=== PATIENT | male | born 1985 | race Caucasian/White ===

== ENCOUNTER → 2023-10-21 | Outpatient (CLI) | payer OTHER, SELFPAY ==
[2023-10-21 12:17] LABS: Erythrocyte Sedimentation Rate 1 mm/hr (0-20)
[2023-10-21 12:40] LABS: AST(SGOT) 26 U/L (15-37); Alanine Aminotransfer ALT/SGPT 58 U/L (16-61); Albumin, Serum 3.9 g/dL (3.2-5.0); Alkaline Phosphatase 85 U/L (45-117); Anion Gap 3 (5-15); BUN 17 mg/dL (7-18); CRP < 2.90 mg/L (0.0-3.0); Calcium,Total 9.1 mg/dL (8.5-10.1); Chloride 107 mmol/L (98-107); Cholesterol 173 mg/dL (200); Creatinine, Serum 0.85 mg/dL (0.70-1.30); EST Glomerular Filtration Rate 106 mL/min (>60); Est Glom Filt Rate - Afr Amer 128 mL/min (>60); Globulin 3.8 g/dL (2.2-4.2); Glucose 104 mg/dL (74-106); High Density Lipoprotein 48 mg/dL; Potassium 4.3 mmol/L (3.5-5.1); Protein, Total 7.7 g/dL (6.4-8.2); Rheumatoid Factor < 10.0 IU/mL (<15); Sodium Level 138 mmol/L (136-145); Triglycerides 97 mg/dL; Very Low Density Lipoprotein 19 mg/dL (5-40)
[2023-10-24 12:08] LABS: ANTINUCLEAR ANTIBODIES DIRECT Negative (Negative)
== END | disposition home or self-care (01) ==
PROVIDERS: PCP Family Medicine; Referring Provider Family Medicine; Visit Provider Family Medicine
DX: Z13.6 Encounter for screening for cardiovascular disorders (principal); Z13.1 Encounter for screening for diabetes mellitus; M25.50 Pain in unspecified joint
CPT/HCPCS: 36415; 80053; 80061; 85652; 86038; 86140; 86431

== ENCOUNTER → 2024-01-25 | Outpatient (CLI) | payer OTHER, SELFPAY ==
[2024-01-25 17:08] LABS: Free T3 3.2 pg/mL (2.18-3.98); T4 Free Direct 1.01 ng/dL (0.76-1.46); Thyroid Stim Hormone (TSH) 1.43 uIU/mL (0.358-3.74)
[2024-01-27 16:09] LABS: Anti-Thyroglobulin AB < 1.0 IU/mL (0.0-0.9)
== END | disposition home or self-care (01) ==
LOC: LAB 15:43
PROVIDERS: PCP Family Medicine; Referring Provider Family Medicine; Visit Provider Family Medicine
DX: K52.9 Noninfective gastroenteritis and colitis, unspecified (principal)
CPT/HCPCS: 36415; 84432; 84439; 84443; 84481; 86800

== ENCOUNTER 2024-03-09 06:18 | Day surgery (SDC) | payer OTHER, SELFPAY ==
[2024-03-09 06:36] VITALS: BP 124/105; PULSE 82; RESP 16; TEMP 36.4; O2SAT 95; BMI 34.2
[2024-03-09] MEDS: Lactated Ringers 1,000 ML 15 ML IV (06:42)
--- NOTE | 2024-03-09 07:30 | EGD_PTH ---
PATIENT: RICHARD THOMPSON LOC: EN U#:[id number] AGE/SX: 38/M ROOM: RE03/09/[address]: Dr. Lucien Vora MD : 1985 BED: DIS: 03/09/2024 SPEC #: [id number] RECD: 03/09/24 10:50 STATUS: MINAL MILDRED #: [id number] PATRICE: 03/09/24 07:[address]: Lucien Vora DEPT: SURGICAL PATHOLOGY RECD BY: Yuly Uriarte ENTERED: 03/09/24 13:40 SP TYPE: EGD BIOPSY OT DR: Jada Griffiths PA-C Tissues: A - Gastric mucous membrane B - COLON BIOPSY Procedures: Surgery Specimen Level IV HEADER OPERATION: Colonoscopy with biopsies, EGD PRE-OP DIAGNOSIS: Abdominal pain, diarrhea TISSUE SUBMITTED: A- Antrum biopsy, B- Random colon biopsy MICROSCOPIC DIAGNOSIS A. Antrum, biopsy: Mild gastritis. See microscopic description and comment. B. Colon, random biopsy: Fragments of colonic mucosa, no pathologic diagnosis. / 03/12/24 COMMENT A. Immunohistochemistry ([id number]) supports the above diagnosis. MICROSCOPIC DESCRIPTION Slides are reviewed. The specimen shows fragments of gastric mucosa with chronic inflammatory cell infiltrates in the lamina propria consisting of lymphocytes and plasma cells, consistent with mild chronic gastritis. GROSS DESCRIPTION A. Received in fixative is one container labeled with the patient's name and designated Gastric antrum biopsy. The specimen consists of two irregular fragments of light gore soft tissue that in aggregate measure 0.6 x 0.2 x 0.1 cm. The specimen is totally submitted in one cassette. B. Received in fixative is one container labeled with the patient's name and designated Random colon biopsy. The specimen consists of multiple irregular fragments of light gore soft tissue that in aggregate measure 2.0 x 0.5 x 0.1 cm. The specimen is totally submitted in one cassette. / 03/09/24 TC:3 CPT:28871g2
--- NOTE | 2024-03-09 07:30 | IMM_PTH ---
PATIENT: RICHARD THOMPSON LOC: EN U#:[id number] AGE/SX: 38/M ROOM: RE03/09/[address]: Dr. Lucien Vora MD : 1985 BED: DIS: 03/09/2024 SPEC #: [id number] RECD: 03/09/24 13:13 STATUS: MINAL REQ #: [id number] PATRICE: 03/09/24 07:[address]: Lucien Vora DEPT: IMMUNOHISTOCHEMISTRY RECD BY: Justo Suazo ENTERED: 03/09/24 13:14 SP TYPE: IMMUNO OTHR DR: Jada Griffiths PA-C Tissues: A - Stomach, NOS Procedures: H Pylori (initial) PHYSICIAN & INSTITUTION [place] [id number] SPECIMEN INFORMATION: Tissue Source: Antrum biopsy Clinical Info: Abdominal pain, diarrhea Specimen Number: [id number] CPT code: 37241 METHODOLOGY: Deparaffinized sections of prefer/formalin-fixed tissue or PAP/DQ stained slides are incubated with monoclonal/polyclonal antibodies/oligonucleotide probes. Localization is made via biotin free immunoperoxidase method. Appropriate controls are performed and reacted as expected. Results on target cell population are indicated in the following table: RESULTS: ANTIBODY / CLONE RESULT Block A H Pylori (polyclonal) negative These tests were developed and their performance characteristics determined by [facility]. They may not have been cleared or approved by the U.S. Food and Drug Administration. The FDA has determined that such clearance or approval is not necessary. The above immunohistochemical/dualISH markers are ordered and reviewed by the Pathologist. INTERPRETATION: A. Antrum, biopsy: Negative for Helicobacter pylori organisms. KAY/ 03/12/24
--- NOTE | 2024-03-09 07:47 | HP.PCM_ITS ---
History and Physical Date of Admission: 03/09/24 Intake Vital Signs 02/15/2408:07 Height 6 ft 2 in Weight: 280 lb BMI 35.9 BP 121/80 H Blood Pressure Location Rt brachial Position Sitting Respiration 18 Pulse 67 Pulse Source Monitor Temp 97.3 F L Temp Source Temporal Pulse Oximetry (%) 93 Oxygen Delivery Method room air Intake Visit Reasons: Colonoscopy and EGD Chief Complaint: colonoscopy egd Package Drier Required: No Accompanied by: Is patient in pain?: No Allergies pollen extracts Allergy (Mild, Verified 02/15/24 08:09) UNKNOWN Medications budesonide 32 mcg/actuation nasal spray 1 - 2 spray intranasal QDAY 02/15/24 [History Confirmed 02/15/24] fluoxetine 20 mg capsule 20 mg PO QDAY 02/15/24 [History Confirmed 02/15/24] omeprazole 40 mg capsule,delayed release 40 mg PO QDAY 02/15/24 [History Confirmed 02/15/24] PFSH Surgical History (Updated 02/15/24 @ 08:06 by Jada Hernandez LPN) H/O shoulder surgery H/O wisdom tooth extraction Social History (Updated 02/15/24 @ 08:07 by Jada Hernandez LPN) Smokeless tobacco user: chewing tobacco alcohol intake: current alcohol intake frequency: a few times a month Alcohol type: beer substance use type: marijuana HPI HPI HPI: The patient is a 38-year-old male here with epigastric discomfort as well as diarrhea. He is concerned he has IBS. He says he has been having diarrhea as well as nausea every time he eats. He reports his discomfort is in the epigastric region and it starts pursing in the morning. Sometimes eating helps. He does not describe any radiation of the pain. He has never had a colonoscopy in the past and denies any family history of colon cancer. No blood in the stool. ROS HEENT HEENT: No difficulty swallowing, eye injury, eye surgery, swollen glands or hoarseness Skin Skin: No rash or changing moles Musc Musculoskeletal: Yes back problems; No arthritis, rheumatoid arthritis, gout or joint pain Cardio Cardiovascular: No murmur, pacemaker, heart disease, atrial fibrillation, high blood pressure, heart attack, heart stent, palpitations, shortness of breat with exertion or chest pain Psych Psychiatric: Yes depression and anxiety; No hearing voices Resp Respiratory: No shortness of breath, No sleep apnea, No cough, No COPD, No asthma, No emphysema and No wheezing Gastro Gastrointestinal: No abdominal pain, Yes nausea or vomiting, Yes diarrhea, No constipation, No blood in stool, Yes acid reflux, Yes hemorrhoids, No ulcers, No gallbladder problem and No black,tarry stools Chace Hematologic: No blood thinners, No blood disorders, No bleeding, No anemia and No blood clots Neuro Neurologic: Yes numbness and Yes tingling Exam Const General: cooperative Orientation: alert and oriented x3 HENMT Head: normal to inspection Neck Neck: normal visual inspection and full ROM Chest Chest palpation & inspection: normal inspection of the chest Resp Effort & Inspection: normal respiratory effort Auscultation: clear to auscultation bilaterally Cardio Rate: regular rate Rhythm: regular rhythm GI Inspection: non-distended Palpation: soft and nontender Skin General: no rashes or lesions noted Neuro General: patient alert and patient oriented x3 Extrem General: full ROM Psych Appearance: grossly normal Mental Status: mental status grossly normal Assessment and Plan Assessment and Plan (1) Abdominal pain: Status: Acute Qualifiers: Abdominal location: epigastric Qualified Code(s): R10.13 - Epigastric pain (2) Diarrhea: Status: Acute Qualifiers: Diarrhea type: unspecified type Qualified Code(s): R19.7 - Diarrhea, unspecified Orders: Orders Colonoscopy Today EGD Today Plan The patient is having chronic diarrhea and I discussed doing a colonoscopy to perform random biopsies to evaluate for microscopic colitis. I also discussed performing EGD for his epigastric pain. He just started omeprazole 2 weeks ago but does not report much of a difference. I explained endoscopy in detail to the patient. I explained the risks including but not limited to stroke or heart attack with anesthesia, perforation of the GI tract, bleeding, infection. I explained that any of these could necessitate further emergency surgery. The patient understands and all questions were answered sufficiently. The patient wishes to proceed with procedure. Lucien Vora MD Pager: [facility] [address] [place] [address], [address] [place] [address] Office: I have examined the patient and the H&P has been reviewed. There are no clinical changes since date of exam.
[2024-03-09 08:15] VITALS: BP 101/72; BP 124/105; PULSE 68; RESP 16; TEMP 36.3; O2SAT 94
--- NOTE | 2024-03-09 08:16 | OP.CCLET_ITS ---
03/09/2024 Jada Griffiths Re : Upper GI endoscopy procedure for Arie Griffiths This procedure was performed on Saturday, March 09, 2024. My impressions and recommendations are as follows: Impressions : - Gastritis. Biopsied. - Normal esophagus. - Normal examined duodenum. Recommendations : - Discharge patient to home. - Resume previous diet. - Continue present medications. - Use Prilosec (omeprazole) 40 mg PO daily for 4 weeks. My findings are described in the full procedure note, which is enclosed. If I can be of further assistance, please feel free to contact me at Doctor phone number(s): , Work: . Sincerely, Lucien Vora MD 03/09/2024 8:16:03 AM This report has been signed electronically.
--- NOTE | 2024-03-09 08:16 | OP.EGD_ITS ---
Patient Name: Arie Saul Procedure Date: 03/09/2024 7:17 AM Date of : 1985 Age: 38 Procedure: Upper GI endoscopy Indications: Epigastric abdominal pain Providers: Lucien Vora MD Referring MD: Jada Griffiths Medicines: Propofol per Anesthesia Patient Profile: This is a 38 year old male. Refer to note in patient chart for documentation of history and physical. Complications: No immediate complications. Estimated blood loss: Minimal. Procedure: Pre-Anesthesia Assessment: - Prior to the procedure, a History and Physical was performed, and patient medications and allergies were reviewed. The patient's tolerance of previous anesthesia was also reviewed. The risks and benefits of the procedure and the sedation options and risks were discussed with the patient. All questions were answered, and informed consent was obtained. Prior Anticoagulants: The patient has taken no anticoagulant or antiplatelet agents. After reviewing the risks and benefits, the patient was deemed in satisfactory condition to undergo the procedure. After obtaining informed consent, the endoscope was passed under direct vision. Throughout the procedure, the patient's blood pressure, pulse, and oxygen saturations were monitored continuously. The gastroscope was introduced through the mouth, and advanced to the second part of duodenum. The upper GI endoscopy was accomplished without difficulty. The patient tolerated the procedure well. Scope In: 7:54:33 AM Scope Out: 7:56:48 AM Total Procedure Duration Time 0 hours 2 minutes 15 seconds Findings: Localized mild inflammation was found in the prepyloric region of the stomach. Biopsies were taken with a cold forceps for Helicobacter pylori testing. The esophagus was normal. The examined duodenum was normal. Impression: - Gastritis. Biopsied. - Normal esophagus. - Normal examined duodenum. Recommendation: - Discharge patient to home. - Resume previous diet. - Continue present medications. - Use Prilosec (omeprazole) 40 mg PO daily for 4 weeks. Procedure Code(s): --- Professional --- 24580, Esophagogastroduodenoscopy, flexible, transoral; with biopsy, single or multiple Diagnosis Code(s): --- Professional --- K29.70, Gastritis, unspecified, without bleeding R10.13, Epigastric pain CPT copyright 2021 [employer]. All rights reserved. The codes documented in this report are preliminary and upon tare weigher review may be revised to meet current compliance requirements. Lucien Vora MD 03/09/2024 8:16:03 AM This report has been signed electronically. Number of Addenda: 0 Note Initiated On: 03/09/2024 7:17 AM
--- NOTE | 2024-03-09 08:18 | OP.CCLET_ITS ---
03/09/2024 Jada Griffiths Re : Colonoscopy procedure for Arie Griffiths This procedure was performed on Saturday, March 09, 2024. My impressions and recommendations are as follows: Impressions : - The entire examined colon is normal on direct and retroflexion views. - Biopsies were taken with a cold forceps from the entire colon for evaluation of microscopic colitis. Recommendations : - Discharge patient to home. - Resume previous diet. - Continue present medications. - Await pathology results. - Repeat colonoscopy in 10 years for screening purposes. My findings are described in the full procedure note, which is enclosed. If I can be of further assistance, please feel free to contact me at Doctor phone number(s): , Work: . Sincerely, Lucien Vora MD 03/09/2024 8:17:38 AM This report has been signed electronically.
--- NOTE | 2024-03-09 08:18 | OP.COLON_ITS ---
Patient Name: Arie Saul Procedure Date: 03/09/2024 7:57 AM Date of : 1985 Age: 38 Procedure: Colonoscopy Indications: Diarrhea Providers: Lucien Vora MD Referring MD: Jada Griffiths Medicines: Propofol per Anesthesia Patient Profile: This is a 38 year old male. Refer to note in patient chart for documentation of history and physical. Last Colonoscopy: none. The patient's first colonoscopy is today. Complications: No immediate complications. Estimated blood loss: Minimal. Procedure: Pre-Anesthesia Assessment: - Prior to the procedure, a History and Physical was performed, and patient medications and allergies were reviewed. The patient's tolerance of previous anesthesia was also reviewed. The risks and benefits of the procedure and the sedation options and risks were discussed with the patient. All questions were answered, and informed consent was obtained. Prior Anticoagulants: The patient has taken no anticoagulant or antiplatelet agents. After reviewing the risks and benefits, the patient was deemed in satisfactory condition to undergo the procedure. After I obtained informed consent, the scope was passed under direct vision. Throughout the procedure, the patient's blood pressure, pulse, and oxygen saturations were monitored continuously. The Colonoscope was introduced through the anus and advanced to the cecum, identified by appendiceal orifice and ileocecal valve. The colonoscopy was performed without difficulty. The patient tolerated the procedure well. The quality of the bowel preparation was good. The ileocecal valve, appendiceal orifice, and rectum were photographed. Scope In: 7:59:14 AM Scope Withdrawal Time 0 hours 5 minutes 44 seconds Scope Out: 8:08:24 AM Total Procedure Duration Time 0 hours 9 minutes 10 seconds Findings: The entire examined colon appeared normal on direct and retroflexion views. Biopsies for histology were taken with a cold forceps from the entire colon for evaluation of microscopic colitis. Impression: - The entire examined colon is normal on direct and retroflexion views. - Biopsies were taken with a cold forceps from the entire colon for evaluation of microscopic colitis. Recommendation: - Discharge patient to home. - Resume previous diet. - Continue present medications. - Await pathology results. - Repeat colonoscopy in 10 years for screening purposes. Procedure Code(s): --- Professional --- 21266, Colonoscopy, flexible; with biopsy, single or multiple Diagnosis Code(s): --- Professional --- R19.7, Diarrhea, unspecified CPT copyright 2021 [employer]. All rights reserved. The codes documented in this report are preliminary and upon graphic design teacher review may be revised to meet current compliance requirements. Lucien Vora MD 03/09/2024 8:17:38 AM This report has been signed electronically. Number of Addenda: 0 Note Initiated On: 03/09/2024 7:57 AM
[2024-03-09 08:20] VITALS: BP 100/74; BP 124/105; PULSE 62; RESP 16; O2SAT 95
[2024-03-09 08:25] VITALS: BP 124/105; BP 154/78; PULSE 74; RESP 16; TEMP 36.1; O2SAT 94
[2024-03-09 08:30] VITALS: BP 124/105; BP 154/78; PULSE 73; RESP 16; TEMP 36.1; O2SAT 94
[2024-03-09 08:46] VITALS: BP 124/105
== END 2024-03-09 08:56 | disposition home or self-care (01) ==
LOC: EN 06:19 → AC 06:20
PROVIDERS: PCP Family Medicine; Referring Provider Family Medicine; Visit Provider Surgery
PROC: 0DJD8ZZ Inspection of Lower Intestinal Tract, Via Natural or Artificial Opening Endoscopic (ICD-10-PCS; CPT 45378; principal; 2024-03-09 07:25)
DX: K29.70 Gastritis, unspecified, without bleeding (principal); F17.220 Nicotine dependence, chewing tobacco, uncomplicated; K21.9 Gastro-esophageal reflux disease without esophagitis
CPT/HCPCS: 43239; 45380; 88305; 88342; J2405